=== PATIENT | male | born 1940 | race Caucasian/White ===

== ENCOUNTER 2016-12-20 18:10 | Emergency (ER) | payer OTHER, BC ==
--- NOTE | 2016-12-20 18:07 | EDPHY ---
Medical Decision Making ED Course/Re-evaluation: CHIEF COMPLAINT: Cardiac arrest. HISTORY OF PRESENT ILLNESS: The patient is a 76-year-old male who presents via EMS as a cardiac arrest. Per EMS he was down for 15 minutes prior to EMS arrival and CPR has been in progress for 30 minutes on arrival to the ED. History unobtainable due to clinical condition. EMS placed a Wilson airway prior to arrival. REVIEW OF SYSTEMS: Unobtainable due to clinical condition. PHYSICAL EXAM: HR, BP, O2 Sat, RR. Temp noted General Appearance: Obtunded, unresponsive. Head: Atraumatic without scalp tenderness or obvious injury Eyes: Pupils fixed and dilated. Ears: Clear bilaterally, no perforation, normal landmarks Nose: Atraumatic, no rhinorrhea, clear. Throat: There is no erythema or exudates, no lesions, normal tonsils, mucus membranes moist. Neck: Supple, 2+ carotid upstroke, nontender, no lymphadenopathy. Respiratory: No retractions, no distress, no wheezes, and no accessory muscle use. Lungs are clear to auscultation bilaterally. Cardiovascular: Regular rate and rhythm, no murmurs, rubs, or gallops. Bilateral carotid, radial, dorsalis pedis, and posterior tibial pulses intact. Good capillary refill all extremities. Gastrointestinal: Abdomen is soft, non-distended, no masses, no rebound, no guarding, no peritoneal signs. Musculoskeletal: Not moving extremities. Neurological: Unconscious. Skin: No rashes, good turgor, no nodules on palpation. Past medical history: Unknown. Past surgical history: Unknown. Family history: Unknown. Social history: Unknown. DIAGNOSTICS/PROCEDURES/CRITICAL CARE TIME: Procedure: Rapid sequence intubation. Indication for the procedure was cardiac arrest. The patient was preoxygenated with 100% oxygen by face mask. The patient was orally endotracheally intubated under direct visualization with a 7.5 ETT. In line stabilization was performed during the procedure. Tracheal intubation was confirmed with misting on the tube ; breath sounds were auscultated equally bilaterally; appropriate color change with [employer] CO2 detector. Chest X-ray shows ETT in good position. The procedure was performed by myself. DIFFERENTIAL DIAGNOSIS: MEDICAL DECISION MAKING: I met EMS on arrival and obtained a report from the railroad operator. The patient arrived with CPR in progress. Respiratory therapy at bedside. 30 minutes of CPR has been administered on arrival. EMS administered 4 rounds of epinephrine and shocked the patient 4 times to no effect. EMS placed a Wilson airway but was unable to establish an endotracheal tube. Interosseous 181: 1mg Epinephrine administered. 125 Solu-Medrol administered. 181: CPR help for shock and subsequently resumed. Patient intubated (see procedure note for details). 40mg IV Vasopressin administered. 1818: I performed a cardiac ultrasound. I visualized no cardiac activity. 1820: Time of . 1824: I spoke with the patient's family and answered their questions. - Data Points Laboratory Results: 12/20/16 18:14 POC Hgb 15.0 gm/dL gm/dL (14.5-17.3) POC Hct 44 % % (42.8-50.6) POC Sodium 139 mEq/L mEq/L (134-144) POC Potassium 4.6 mEq/L mEq/L (3.3-5.0) POC Chloride 100 mEq/L mEq/L (96-108) POC BUN 14 mg/dL mg/dL (7-23) POC Creatinine 1.3 mg/dL mg/dL (0.8-1.5) POC Glucose 286 mg/dL H mg/dL (70-100) Point of Care Test Results: 12/20/16 18:14 POC Sodium 139 POC Potassium 4.6 POC Chloride 100 POC BUN 14 POC Creatinine 1.3 POC Glucose 286 H Departure - Departure Disposition: Clinical Impression: Cardiac arrest Referrals: Patient,NotPresent [Primary Care Provider] - As per Instructions Report Scribed for: Christiano Mcnulty Report Scribed by: Samir Muñoz Date of Report: 12/20/16 Time of Report: 18:08
[2016-12-20] MEDS ORDERED: methylPREDNISolone SOD SUCC 125 MG/2 ML VIAL IVP ONE (18:31)
[2016-12-20] MEDS ORDERED: EPINEPHrine 1 MG/10 ML SYR IVP ONE ×2 (18:31→18:42)
[2016-12-20] MEDS ORDERED: VASOPRESSIN 20 UNIT/ML VIAL IV ONE (19:00)
== END 2016-12-20 21:24 | disposition expired ==
DX: I46.9 Cardiac arrest, cause unspecified (principal)
CPT/HCPCS: 82947-QW; 96374